=== PATIENT | male | born 1975 | race Caucasian/White ===

== ENCOUNTER 2016-11-26 05:20 | Emergency (ER) | payer MEDICAID ==
[~2016-11-26] VITALS: Ht 162.6 cm; Wt 74.0 kg
[2016-11-26 05:35] VITALS: Ht 162.6 cm; Wt 74.0 kg
[2016-11-26] MEDS ORDERED: SOD CHLORIDE 0.9% 1,000 ML IV STA (06:18)
[2016-11-26] MEDS ORDERED: LORAZEPAM 2 MG INJ IV STA (06:18)
[2016-11-26] MEDS ORDERED: MAGNESIUM SULFATE 2 GM, MULTIVITAMINS 10 ML, THIAMINE 100 MG, FOLIC ACID 1 MG in SOD CH... IV STA (06:18)
--- NOTE | 2016-11-26 06:40 | ERD ---
ER Documentation Chief Complaint Date/Time DATE: 11/26/16 TIME: 06:36 Chief Complaint Pt reports blood in stool, elevated BGL, and alcohol with drawl HPI This is a 41-year-old male with a known history of alcohol abuse and non-insulin -dependent diabetes mellitus. The patient indicates he drinks a significant amount of alcohol on a daily basis and his last consumption of alcohol was at midnight, 6 hours prior to arrival where he drank 1 beer. The patient indicates that over the past 7 days he has not noticed bright red blood coating his stool and on the toilet paper after he wipes. He denies any constipation or diarrhea. He indicates he presents to the emergency department today as he was feeling palpitations, anxiousness, shaking of his upper extremities and became diaphoretic. He denied any chest pain or pressure that radiated to the neck arm back or jaw. He denied any hemoptysis hematemesis and no melanotic stools. He denies any abdominal pain. He has no shortness of breath at rest or exertion. He denies a headache or changes in vision. He has had no fevers no shaking or chills. He does indicate he has been experiencing polyuria but no polydipsia. He also indicates he is noncompliant with his diabetic medication. The patient denies any confusion. ROS All systems reviewed and are negative except as per history of present illness. Allergies Allergies: Coded Allergies: No Known Allergy (Unverified , 11/26/16) PMhx/Soc Medical and Surgical Hx: pt denies Surgical Hx Hx Cardiac Disorders: Yes (HLD) Hx Miscellaneous Medical Probl: Yes (GASTRITIS, DM) Hx Alcohol Use: Yes (BEER) Hx Substance Use: No Hx Tobacco Use: No Smoking Status: Never smoker Physical Exam Vitals Vital Signs Date Time Temp Pulse Resp B/P Pulse Ox O2 Delivery O2 Flow Rate FiO2 11/26/16 05:35 98.9 83 16 125/92 98 Physical Exam Constitutional:Well-developed. Well-nourished. HEENT:Normocephalic. Atraumatic.Pupils were equal round reactive to light. Moist mucous membranes.No tonsillar exudates. Neck: No nuchal rigidity. No lymphadenopathy. No posterior cervical spine tenderness or step-offs. Respiratory: Not using accessory muscles of respiration.Lungs were clear to auscultation bilaterally. No rhonchi. No rales. No wheezing. Cardiovascular: Regular rate regular rhythm.No murmurs. No rubs were appreciated.S1, S2 normal. Distal pulses are palpable 2+ bilaterally. GI: Abdomen was soft. Nontender. Non Distended. No pulsatile abdominal masses or bruits. No rebound. No guarding. Bowel sounds were present and normal. RECTAL: Fecal occult blood test negative. Normal sphincter tone. Nonthrombosed hemorrhoid present at the 9 o'clock position with hemostasis controlled Muscle skeletal: Full range of motion of both the upper and lower extremities bilaterally.Normal muscle tone.No assymetrical calf tenderness or swelling. Skin: No petechia, no purpura. No lesions on the palms or the soles of the feet. No maculopapular rash. NEURO: Patient was alert, awake, orientated x3.No facial droop. Gait observed and normal with no ataxia.Speech had regular rate and rhythm. No focal neurological deficits. Asterixis. Result Diagram: 11/26/16 0635 11/26/16 0635 Results 24 hrs Laboratory Tests Test 11/26/16 06:13 11/26/16 06:35 11/26/16 06:39 Bedside Glucose 202mg/dL White Blood Count 4.110^3/ul Red Blood Count 4.8610^6/ul Hemoglobin 14.5g/dl Hematocrit 43.0% Mean Corpuscular Volume 88.5fl Mean Corpuscular Hemoglobin 29.8pg Mean Corpuscular Hemoglobin Concent 33.7g/dl Red Cell Distribution Width 13.2% Platelet Count 88207^3/UL Mean Platelet Volume 11.8fl Neutrophils % 58.9% Lymphocytes % 26.1% Monocytes % 12.9% Eosinophils % 1.7% Basophils % 0.2% Nucleated Red Blood Cells % 0.0/100WBC Neutrophils # 2.410^3/ul Lymphocytes # 1.110^3/ul Monocytes # 0.510^3/ul Eosinophils # 0.110^3/ul Basophils # 0.010^3/ul Nucleated Red Blood Cells # 0.010^3/ul Prothrombin Time 13.5Sec Prothrombin Time Ratio 1.1 INR International Normalized Ratio 1.03 Activated Partial Thromboplast Time 26.0Sec Sodium Level 135mmol/L Potassium Level 4.3mmol/L Chloride Level 101mmol/L Carbon Dioxide Level 27mmol/L Anion Gap 11 Blood Urea Nitrogen 15mg/dl Creatinine 0.49mg/dl Glucose Level 247mg/dl Calcium Level 8.7mg/dl Total Bilirubin 0.7mg/dl Direct Bilirubin 0.00mg/dl Indirect Bilirubin 0.7mg/dl Aspartate Amino Transf (AST/SGOT) 238IU/L Alanine Aminotransferase (ALT/SGPT) 247IU/L Alkaline Phosphatase 133IU/L Total Protein 6.3g/dl Albumin 3.7g/dl Globulin 2.60g/dl Albumin/Globulin Ratio 1.42 Amylase Level 59U/L Lipase 102U/L Salicylates Level < 1.0mg/dl Acetaminophen Level < 10.0ug/ml Ethyl Alcohol Level < 10.0mg/dl Urine Color LT. YELLOW Urine Clarity CLEAR Urine pH 7.0 Urine Specific [place] 1.015 Urine Ketones 15 Urine Nitrite NEGATIVE Urine Bilirubin NEGATIVE Urine Urobilinogen 0.2 E.U./dL Urine Leukocyte Esterase NEGATIVE Urine Hemoglobin NEGATIVE Urine Glucose 0.5%% Urine Total Protein NEGATIVE Urine Opiates Screen Negative Urine Barbiturates Negative Urine Amphetamines Screen Negative Urine Benzodiazepines Screen Negative Urine Cocaine Screen Negative Urine Cannabinoids Negative Current Medications Medications (Trade) Dose Ordered Sig/Belinda Route PRN Reason Start Time Stop Time Status Last Admin Dose Admin Magnesium Sulfate/ Multivitamins/ Thiamine HCl/ Folic Acid/Sodium Chloride (Magnesium Sulfate/Mvi Adult/ Vitamin B1/Folic Acid/NS) 1,015.2 ml @ 500 mls/ hr Q2H2M STAT IV 11/26/16 06:18 11/26/16 08:19 Lorazepam 1 mg 1 mg ONCE STAT IV 11/26/16 06:18 11/26/16 06:21 DC 11/26/16 06:40 Sodium Chloride (NS) 1,000 ml @ 1,000 mls/hr Q1H STAT IV 11/26/16 06:18 11/26/16 07:17 DC 11/26/16 06:40 Chlordiazepoxide (Librium) 50 mg ONCE ONCE PO 11/26/16 08:30 11/26/16 08:31 Procedures/MDM The patient presented to the emergency department with hematochezia, suggesting a lower gastrointestinal bleeding. My differential diagnosis included but was not limited to diverticulosis, cancer, polyps, colitis, internal or external hemorrhoids, IBD, and vascular etiologies such as angiodysplasia or aortocolonic fistula. The patient was placed on a cardiac cath rn, continuous pulse oximetry, and IV access established by nursing staff. The patient had a nonthrombosed external hemorrhoid on physical exam the likely result a result of the patient's hematochezia. However the patient also has a history of alcohol abuse but did not experience any melanotic stools and the fecal occult blood test was negative. The patient's hemoglobin was stable. The patient had transaminitis likely secondary to his alcohol abuse. The patient was treated for mild alcohol withdrawal symptoms without delirium. He received IV Ativan. His serum ethanol level was undetected but the patient had no seizure activity, was afebrile and my concern for impending delirium tremors was low at this time. The patient received a banana bag while in the emergency department to supplement deficiencies as a result of his alcohol abuse. 12 Lead EKG tracing ordered and reviewed by myself showed: Normal sinus rhythm of 75 bpm and no arrhythmia. [place] interval normal. QRS duration normal. No ST segment elevation No ST segment depression. No changes consistent with acute ischemia. The patient had relief of his asterixis and palpitations. The patient had also been given a longer acting benzodiazepine being Librium. The patient stated he felt comfortable being discharged home. The patient was discharged home in fair condition. They were instructed to return to the emergency department at any time if there was any worsening of their condition. The patient stated they would follow up with their PCP in the next 24-48 hours to initiate a suitable medication regimen under the care of their PCP as well as to allow their PCP to monitor any drug reactions. The patient was discharged home with prescriptions after they gave informed consent to the new medication. They were also fully informed by myself on the adverse effects and adverse drug interactions in order to provide adequate safeguards to prevent possible adverse reactions to medications. Departure Diagnosis: Primary Impression: Alcohol withdrawal syndrome Complication of substance-induced condition: uncomplicated Qualified Code: F10.230 - Alcohol withdrawal syndrome, uncomplicated Additional Impression: Hemorrhoids Hemorrhoid type: first degree Qualified Code: K64.0 - First degree hemorrhoids Condition: Fair BRANDIE CARPENTER Nov 26, 2016 06:40
[2016-11-26 06:50] LABS: ADD SCAN DIFF NO
[2016-11-26 06:56] LABS: BASOPHILS % 0.2 % (0.0-2.0); EOSINOPHILS # 0.1 10^3/ul (0.0-0.5); EOSINOPHILS % 1.7 % (0.0-7.0); HEMOGLOBIN 14.5 g/dl (14.0-18.0); LYMPHOCYTES # 1.1 10^3/ul (0.8-2.9); LYMPHOCYTES % 26.1 % (15.0-51.0); MEAN CORPUSCULAR HEMOGLOBIN 29.8 pg (29.0-33.0); MEAN CORPUSCULAR HGB CONC 33.7 g/dl (32.0-37.0); MEAN CORPUSCULAR VOLUME 88.5 fl (82.0-101.0); MEAN PLATELET VOLUME 11.8 fl (7.4-10.4); MONOCYTE # 0.5 10^3/ul (0.3-0.9); MONOCYTES % 12.9 % (0.0-11.0); NEUTROPHIL # 2.4 10^3/ul (1.6-7.5); NEUTROPHILS % 58.9 % (39.0-77.0); PLATELET COUNT 211 10^3/UL (140-415); RED BLOOD COUNT 4.86 10^6/ul (4.70-6.10); RED CELL DISTRIBUTION WIDTH 13.2 % (11.5-14.5); WHITE BLOOD COUNT 4.1 10^3/ul (4.8-10.8)
[2016-11-26 07:16] LABS: ALBUMIN 3.7 g/dl (3.3-4.9); CHLORIDE 101 mmol/L (97-110); INR 1.03; PROTIME 13.5 Sec (12.2-14.2); PT RATIO 1.1; SODIUM 135 mmol/L (135-144)
[2016-11-26 07:17] LABS: POTASSIUM 4.3 mmol/L (3.5-5.1)
[2016-11-26 07:18] LABS: AMYLASE 59 U/L (11-123); ANION GAP 11 (8-16); BILIRUBIN,INDIRECT 0.7 mg/dl (0-1.1); BILIRUBIN,TOTAL 0.7 mg/dl (0.2-1.3); CARBON DIOXIDE 27 mmol/L (21-31); CREATININE 0.49 mg/dl (0.61-1.24)
[2016-11-26 07:18] LABS: ADD UMIC NO; URINE BILIRUBIN (Dip) NEGATIVE (NEGATIVE); URINE BLOOD (Dip) NEGATIVE (NEGATIVE); URINE COLOR LT. YELLOW (YELLOW); URINE KETONES (Dip) 15 (NEGATIVE); URINE LEUKOCYTE ESTERASE (Dip) NEGATIVE (NEGATIVE); URINE NITRITE (Dip) NEGATIVE (NEGATIVE); URINE TOTAL PROTEIN (Dip) NEGATIVE (NEGATIVE); URINE UROBILINOGEN (Dip) 0.2 E.U./dL (0.1-1.0)
[2016-11-26 07:19] LABS: ALANINE AMINOTRANSFERASE 247 IU/L (13-69); ALBUMIN/GLOBULIN RATIO 1.42; ALKALINE PHOSPHATASE 133 IU/L (42-121); ASPARTATE AMINO TRANSFERASE 238 IU/L (15-46); BLOOD UREA NITROGEN 15 mg/dl (7-20); CALCIUM 8.7 mg/dl (8.4-10.2); GLUCOSE 247 mg/dl (70-220); TOTAL PROTEIN 6.3 g/dl (6.1-8.1)
[2016-11-26 07:23] LABS: ACETAMINOPHEN < 10.0 ug/ml (10.0-30.0)
[2016-11-26 07:24] LABS: ETHANOL < 10.0 mg/dl; SALICYLATE < 1.0 mg/dl (5.0-30.0)
[2016-11-26 07:43] LABS: BARBITURATES Negative (NEGATIVE); BENZODIAZEPINES Negative (NEGATIVE); CANNABINOIDS Negative (NEGATIVE); COCAINE Negative (NEGATIVE); OPIATES Negative (NEGATIVE)
[2016-11-26] MEDS ORDERED: CHLORDIAZEPOXIDE 25 MG CAP PO ONE (08:30)
[2016-11-26] MEDS ORDERED: HYDR25SU23 PR (09:10)
[2016-11-26 10:44] VITALS: BP 107/80; PULSE 78; RESP 16; TEMP 98.4
== END 2016-11-26 10:47 | disposition home or self-care (01) ==
LOC: E/R 05:20
DX: F10.230 Alcohol dependence with withdrawal, uncomplicated (principal); K64.0 First degree hemorrhoids; E11.9 Type 2 diabetes mellitus without complications; R00.2 Palpitations; K92.1 Melena
CPT/HCPCS: 80053; 80306; 80307; 81003; 82150; 82962; 83690; 85025; 85610; 85730; 86850; 86900; 86901; 93005; 96361; 96374; 96375; J2060; J3411; J3475; J7030; Z7502; Z7610

== ENCOUNTER 2017-02-12 11:57 | Day surgery (SDC) | payer BC ==
[~2017-02-12] VITALS: Ht 162.6 cm; Wt 71.4 kg
[~2017-02-12 11:57] MED LIST: HYDR25SU23 PR
[2017-02-12 13:09] VITALS: Ht 162.6 cm; Wt 71.4 kg
[2017-02-12] MEDS ORDERED: METFORMIN DAILY (13:23)
[2017-02-12] MEDS ORDERED: ATORVASTATIN DAILY (13:24)
[2017-02-12] MEDS ORDERED: GLIPIZIDE DAILY (13:24)
--- NOTE | 2017-02-12 15:13 | GILP ---
DATE OF PROCEDURE: NAME OF PROCEDURE: 1. Colonoscopy and polypectomy. 2. Clipping of the polypectomy site. INDICATION FOR THE PROCEDURE: Mr. Avelino Zavala is a 41-year-old male patient who had rectal bl eeding. Patient was scheduled for colonoscopy for further evaluation. The procedure and possible complications were well explained to the patient. He understood and cons ented to the procedure. DESCRIPTION OF PROCEDURE: Under the influence of fentanyl and Versed, the colonoscope was carefully introduced in the rectum and under direct vision it was advanced all the way to the cecum. FINDINGS: The patient had a large rectal polyp and it was removed using the snare and electrocautery . The patient had a thick stalk, so clipping of the polypectomy site was done to prevent bleeding. The patient also had a small polyp in the transverse colon and it was removed using the biopsy forc eps. The patient was noted to have internal hemorrhoids. He tolerated the procedure very well and there was no complication from the procedure. At the end o f the procedure he was awake with stable vital signs and he was discharged home to the care of his [facility]. IMPRESSION: 1. Colonoscopy all the way to the cecum. 2. Large rectal polyp was removed using the snare and electrocautery. 3. Clipping of the polypectomy site was done to prevent bleeding. 4. Small transverse colon polyp was removed using the biopsy forceps. 5. Internal hemorrhoids. PLAN: Await histopathology report. Dictated By: LUCIAN GRIMM/DINO Conf#: [id number] DID#: [id number]
[2017-02-12 15:25] VITALS: BP 116/80; RESP 12
[2017-02-12] MEDS ORDERED: FENTAnyl 50 MCG/ML VIAL ONE (15:56)
[2017-02-12] MEDS ORDERED: MIDAZOLAM 1 MG/ML 2 ML INJ ONE ×2 (15:57)
== END 2017-02-12 16:31 | disposition home or self-care (01) ==
LOC: GIL 11:57
PROVIDERS: ATTEND Internal Medicine Gastroenterology
DX: D12.3 Benign neoplasm of transverse colon (principal); K62.1 Rectal polyp; K64.8 Other hemorrhoids; E11.9 Type 2 diabetes mellitus without complications
CPT/HCPCS: 45380; 88305; J2250; J3010; Z7610